=== PATIENT | female | born 1975 | race African-American/Black ===

== ENCOUNTER 2021-07-04 23:35 | Emergency (ER) | payer SELFPAY ==
[~2021-07-04] VITALS: Ht 167.6 cm; Wt 89.8 kg
[2021-07-05] MEDS ORDERED: IBUPROFEN 600 MG TAB PO STA (00:02)
[2021-07-05] MEDS ORDERED: ACETAMINOPHEN 325 MG TAB PO ONE (00:15)
[2021-07-05] MEDS ORDERED: ACETAMINOPHEN 325 MG TAB ONE (00:29)
[2021-07-05] MEDS ORDERED: IBUPROFEN 400 MG TAB ONE (00:29)
[2021-07-05 01:34] VITALS: BP 122/67
== END 2021-07-05 01:34 | disposition home or self-care (01) ==
LOC: FSED 23:58
DX: R50.9 Fever, unspecified (principal); K52.9 Noninfective gastroenteritis and colitis, unspecified; B34.9 Viral infection, unspecified; R11.2 Nausea with vomiting, unspecified; R51.9 Headache, unspecified; I12.0 Hypertensive chronic kidney disease with stage 5 chronic kidney disease or end stage renal disease; E11.22 Type 2 diabetes mellitus with diabetic chronic kidney disease; N18.6 End stage renal disease; Z99.2 Dependence on renal dialysis; Z20.822 Contact with and (suspected) exposure to COVID-19
CPT/HCPCS: 80048; 80076; 85025; 99283; U0002